=== PATIENT | male | born 1985 | race Caucasian/White ===

== ENCOUNTER 2020-06-12 09:40 | Emergency (ER) | payer SELFPAY ==
[2020-06-12] VITALS (9 sets, daily range): BP systolic 125–139; BP diastolic 88–101; PULSE 62–83; RESP 18; TEMP 37.2; O2SAT 96–100; BMI 28.7
--- NOTE | 2020-06-12 09:41 | W.ED.UPPEXIN ---
Documented by User: GRECIA Hahn 06/12/20 10:23 HPI - Extremity Injury (Upper) General: Chief Complaint: Extremity Injury, Upper Stated Complaint: LEFT HAND INJURY Time Seen by Provider: 06/12/20 09:40 Course Vital Signs: Vital signs: Vital Signs Temperature 98.9 F 06/12/20 09:50 Pulse Rate 62 06/12/20 11:06 Respiratory Rate 18 06/12/20 11:06 Blood Pressure 139/92 06/12/20 11:06 Pulse Oximetry 98 06/12/20 11:06 MDM - Extremity Injury (Upper) MDM Narrative: Medical decision making narrative: Dr. Chaves assumed care of patient upon arrival. Discharge Plan Discharge Patient Disposition: Home Clinical Impression: Foreign body finger Condition: Stable Prescriptions: New Augmentin 875-125 mg tablet 1 tab PO BID Qty: 14 RF: 0 hydrocodone-acetaminophen 5-325 mg tablet 1 tab PO Q6H PRN (Reason: pain) Qty: 14 RF: 0 Discharge Orders: Discharge ED (Routine); Ordered 06/12/20 Ordered By: Jorge Alberto Chaves Discharge Diet: Usual diet Discharge Activity: Limit activity as instructed Patient Instructions: Opioid Safety Activity Restrictions/Additional Instructions: Limit use of the left hand. Follow-up with orthopedics within 1 week dairy store manager will make arrangements for follow-up appointment. Coding Level of Care Code ED Braiding Machine Operator for Chg Fwd Documented by User: Jorge Alberto Chaves DO 06/13/20 06:25 HPI - Extremity Injury (Upper) General: Chief Complaint: Extremity Injury, Upper Stated Complaint: LEFT HAND INJURY Time Seen by Provider: 06/12/20 09:40 History of Present Illness: HPI narrative: 34-year-old male presents emergency room he was doing some work with some windshield wiper blades and somehow got the metal portion of the blade impacted into his left hand in his thumb and index finger. The length of the blades are protruding when he arrives. When he arrived. complaint: injury to: left and hand Onset (ago): minute(s) Other Extremity Injury: Left: fingers Other injuries: none Handedness: right Place: home Relieving factors: immobilization Exacerbating factors: movement of extremity Context: other (Patient was at only working some when she will wiper blades and they somehow snapped back and impaled into his hand.) Review of Systems Const: Denies: fever(s), chills, body aches, change in appetite, fatigue or malaise Card: Denies: chest pain, edema, dyspnea on exertion or orthopnea Resp: Denies: dyspnea, productive cough or non-productive cough GI: Denies: abdominal pain, nausea, vomiting, hematemesis, coffee ground emesis, diarrhea, constipation, bloating, hematochezia or melena : Denies: flank pain, dysuria, urinary frequency or urinary urgency Physical Exam Const: COMMON NORMALS: no acute distress GENERAL APPEARANCE: cooperative and comfortable ORIENTATION/CONSCIOUSNESS: Yes awake, Yes oriented to person, Yes oriented to place and Yes oriented to time HENMT: COMMON NORMALS: normocephalic, atraumatic and hearing grossly normal bilaterally HEAD & SCALP: normocephalic and atraumatic Neck/C-Spine: COMMON NORMALS: no JVD Resp: COMMON NORMALS: normal respiratory effort, No retractions, No use of accessory muscles and clear to auscultation bilaterally AUSCULTATION: clear to auscultation bilaterally Cardio: COMMON NORMALS: no JVD, regular rate, regular rhythm and No murmurs present (Cardio) RATE: regular rate RHYTHM: regular rhythm Extremity: NARRATIVE EXTREMITY EXAM: On arrival to full length when she will wipe legs protruding from the left hand. 1 is impaled into the index finger the other in the region of the second metacarpal. These were initially trimmed using a pincers to limit movement, initially on arrival there protruding out approximately 18 to 24 inches. These were trimmed to just an inch or 2 distal to the entrance point to the skin. Neuro: SENSORIUM/ORIENTATION: Yes oriented to person, Yes oriented to place and Yes oriented to time Procedures Foreign Body Removal Time Out Performed: yes Site: left and hand Description of foreign body: other (Windshield wiper blades) Sedation/Analgesia: other (Etomidate) Technique: other (X-rays examined prior to procedure. There is a small hook at the end of the blade. Using a needle-nose pliers the remaining portion that was protruding was grasped and the foreign body was rotated out in a counterclockwise fashion to prevent a hook from further impinging on soft tissue. ) Confirmed by:: direct visualization Complications: none Post-procedure exam: awake, alert, normal BP, normal HR and normal O2 sat Neurovascular: normal capillary fill, distal light touch sensation intact and distal motor function normal Procedural Sedation Indication: other (Removal of foreign bodies in the left hand.) Presedation Evaluation: See exam above. Preparation: conveyor monitor applied, pulse oximeter, capnometry used, supplemental O2 applied, suction/airway equipment at bedside and IV secured IV Etomidate dose (mg): 10 Patient Tolerated Procedure: well Complications: Respiratory Depression-Repositioning Required Interventions: airway repositioned Additional Comments: Airway briefly repositioned patient recovered well without any further problems. Course Vital Signs: Vital signs: Vital Signs Temperature 98.9 F 06/12/20 09:50 Pulse Rate 62 06/12/20 11:06 Respiratory Rate 18 06/12/20 11:06 Blood Pressure 139/92 06/12/20 11:06 Pulse Oximetry 98 06/12/20 11:06 MDM - Extremity Injury (Upper) MDM Narrative: Medical decision making narrative: Both remaining portions of the wench electrolytes were removed without difficulty or further injury patient tolerated well. His tetanus was updated he was given a gram of Ancef and discharged home on Augmentin wound left open to drainage also given hydrocodone for pain follow-up with primary care within the next week return if has problems. Discharge Plan Discharge Patient Disposition: Home Clinical Impression: Foreign body finger Condition: Stable Prescriptions: New Augmentin 875-125 mg tablet 1 tab PO BID Qty: 14 RF: 0 hydrocodone-acetaminophen 5-325 mg tablet 1 tab PO Q6H PRN (Reason: pain) Qty: 14 RF: 0 Discharge Orders: Discharge ED (Routine); Ordered 06/12/20 Ordered By: Jorge Alberto Chaves Discharge Diet: Usual diet Discharge Activity: Limit activity as instructed Patient Instructions: Opioid Safety Activity Restrictions/Additional Instructions: Limit use of the left hand. Follow-up with orthopedics within 1 week dairy store manager will make arrangements for follow-up appointment. Coding Level of Care Code ED Braiding Machine Operator for Thai Gallardo
--- NOTE | 2020-06-12 09:46 | XR_ITS ---
WS: [id number] Exam: XR hand LT min 3V* [id number] Date/Time of Exam: 06/12/2020 9:48 AM Reason For Exam: FB There are 2 metal shanks embedded in the soft tissues of the hand. One metal fragment is embedded in the lateral soft tissues of the mid index finger and the second metal shank is embedded in the palmar soft tissues along the distal end of the index finger metacarpal. No bony injury or fracture. XR/XR hand LT min 3V* [id number] IMPRESSION: 1. 2 metallic soft tissue foreign bodies identified in the region of the index finger as well as the second metacarpal as noted above. 2. No bony injury.
[2020-06-12] MEDS: ondansetron 2 mg/ML SDV 2 mL 4 MG IVP (09:58)
[2020-06-12] MEDS: morphine 4 mg/mL SDV 1 mL IVP (09:59)
[2020-06-12] MEDS: tetanus-dipt-pertussis 0.5 mL SDV IM (10:11)
--- NOTE | 2020-06-12 10:19 | PC.NURSE ---
Conscious sedation performed at bedside. RT available with BVM ready. Pt was placed on 3LNC prior to sedation. Wiper blades removed by Dr Chaves. Wounds cleansed with betadine.
--- NOTE | 2020-06-12 10:22 | PC.NURSE ---
Pt awake and talking to staff. RT removed oxygen at this time. VS stable.
[2020-06-12] MEDS: ceFAZolin 1,000 MG in sodium chloride 0.9% (plus) 50 ML 100 MG IV (10:30)
--- NOTE | 2020-06-12 11:44 | DCPLANNER ---
manager field service had message to schedule a follow up appointment for patient with ortho for having a FB removed from his hand. manager field service called the ortho clinic, spoke with Mary, gave clinic patients information. manager field service was told that patients information would be printed and reviewed. Clinic will call patient with appointment information.
--- NOTE | 2020-06-19 09:49 | DCPLANNER ---
manager care called the ortho clinic to confirm that a follow up appointment had been scheduled for patient. manager care spoke with Patricia, was told that the clinic has tried to reach patient several times and has not been able to reach patient. manager care called phone number [phone], unable to speak with anyone at this time, a voicemail was left for patient to return keycase assembler phone call.
== END 2020-06-12 11:07 | disposition home or self-care (01) ==
PROVIDERS: Emergency Provider Family Medicine
DX: S61.241A Puncture wound with foreign body of left index finger without damage to nail, initial encounter (principal); W26.8XXA Contact with other sharp object(s), not elsewhere classified, initial encounter; Z23 Encounter for immunization
CPT/HCPCS: 73130; 90471; 90715; 96365; 96375; 99284; 99291; J0690; J2270; J2405; J3490

== ENCOUNTER 2020-09-13 06:48 | Emergency (ER) | payer SELFPAY ==
[2020-09-13 07:33] VITALS: BP 141/102; PULSE 64; RESP 20; TEMP 36.4; O2SAT 99; BMI 31.5
--- NOTE | 2020-09-13 07:41 | CT_ITS ---
WS: [id number] CT kidney stone [id number] REASON FOR EXAM: L flank pain IV CONTRAST ADMINISTERED: Noncontrast TOTAL EXAM DLP: 1595.[address] scans at [facility] use at least one of these dose optimization techniques: automat ed exposure control; mA and/or kV adjustment per patient size (includes targeted exams where dose is matched to clinical indication); or iterative reconstruction. FINDINGS: ABDOMEN: Liver, spleen, pancreas, and gallbladder are unremarkable. The adrenal glands are unremarkable. 2 mm calculus in the upper right kidney. 4 mm calculus in the mi d right kidney. Multiple 2 mm calculi in the left kidney left kidney is enlarged with mild hydronephrosis secondary t o obstructing 5 mm calculus in the left ureter at the L4-L5 level. No mass, adenopathy, focal fluid collection, or free fluid identified. No bowel abnormality. Normal appendix. PELVIS: No mass, adenopathy, focal fluid collection, or free fluid. No distal ureteral calculus or bladder calculus. CT/CT kidney stone [id number] IMPRESSION: Bilateral renal calculi as above. Left obstructive uropathy as above.
--- NOTE | 2020-09-13 07:48 | ED_ITS ---
HPI - Back Pain/Injury General: Chief Complaint: Back Pain/Injury Stated Complaint: FLANK/BACK PAIN Time Seen by Provider: 09/13/20 07:32 Source: patient Mode of arrival: ambulatory Limitations: no limitations History of Present Illness: HPI Narrative: Patient is a 34-year-old male who presents to ED today with a complaint of left flank pain. Patient tells me pain began abruptly around midnight last night. He tells me he has been in a fairly significant amount of pain since that time. He has not found any alleviating or worsening factors. No injury or trauma. He is not having any difficulty with urination and has not noticed any dysuria or hematuria. He states pain radiates around into his abdomen. He has nausea without episodes of emesis. Bowel movements have been normal. No fevers. He has no history of ureter or nephrolithiasis. MD elicited complaint: back pain Onset (ago): hour(s) Timing: constant Severity: severe Similar Symptoms Previously: No Quality: sharp Location: left flank Radiation: abdomen Exacerbating factors: none Relieving factors: none Context: other (awoke from sleep) Associated symptoms: Reports abdominal pain and nausea; Deny chills, dysuria, fatigue, fever(s), hematuria, urinary urgency or vomiting Work related injury: No Review of Systems Const: Denies: fever(s), chills, body aches, fatigue or malaise Card: Denies: chest pain Resp: Denies: dyspnea GI: Reports: abdominal pain and nausea; Denies: vomiting, diarrhea or change in stool character : Reports: flank pain; Denies: difficulty urinating, dysuria, urinary frequency, urinary urgency, urina ry hesitancy, hematuria, genital pain, genital lesions, penile discharge, testicular pain or scrotal swelling Musc: Reports: back pain (L flank); Denies: neck pain, extremity pain or joint pain Skin/Breast: Denies: rash Neuro: Denies: headache(s), numbness in extremities, weakness in extremities, sensory changes or dizziness Physical Exam Const: COMMON NORMALS: average body habitus, patient oriented x3, no limitations, healthy appearing, alert and well nourished GENERAL APPEARANCE: cooperative ORIENTATION/CONSCIOUSNESS: Yes awake, Yes oriented to person, Yes oriented to place and Yes oriented to time OTHER: pacing anxiously in room HENMT: COMMON NORMALS: normocephalic and atraumatic HEAD & SCALP: normocephalic and atraumatic Resp: COMMON NORMALS: normal respiratory effort and clear to auscultation bilaterally AUSCULTATION: clear to auscultation bilaterally Cardio: COMMON NORMALS: regular rate and regular rhythm RATE: regular rate RHYTHM: regular rhythm GI: COMMON NORMALS: Normal to inspection, nondistended, normoactive bowel sounds present, Soft to palpation, non-tender, No hepatosplenomegaly present and no masses INSPECTION: Yes normal to inspection PALPATION: Yes Soft to palpation and Yes No hepatosplenomegaly present : BLADDER/KIDNEY EXAM: Yes CVA tenderness on the left Back/Pelvis: COMMON NORMALS: thoracic and lumbar spine normal to inspection, no thoracic nor lumbar tenderness and thoraco-lumbar ROM normal GENERAL BACK: Yes CVA tenderness Extremity: COMMON NORMALS: normal to inspection Neuro: COMMON NORMALS: patient oriented x3 SENSORIUM/ORIENTATION: Yes alert, Yes oriented to person, Yes oriented to place and Yes oriented to time Skin: COMMON NORMALS: no rashes or lesions noted GENERAL SKIN EXAM: no rashes or lesions noted Course Vital Signs: Vital signs: Vital Signs Temperature 97.6 F 09/13/20 07:33 Pulse Rate 64 09/13/20 07:33 Respiratory Rate 20 H 09/13/20 07:33 Blood Pressure 141/102 09/13/20 07:33 Pulse Oximetry 99 09/13/20 07:33 MDM - Back Pain/Injury MDM Narrative: Medical decision making narrative: Pain has greatly improved here. Feels like pain could be controlled at home. Will give pain/nausea meds/flomax and urine strainer and will have him follow up with Dr. Arias. Return to ED precautions given. Lab Data: Labs: Lab Results 09/13/20 09/13/20 09/13/20 Range/Units 07:52 08:15 08:15 WBC 15.1 H (4.0-10.0) 10^3/ uL RBC 4.99 (4.1-5.3) 10^6/u L Hgb 14.7 (11.7-16.6) g/dL Hct 43.9 (42.0-52.0) % MCV 88.0 (80-94) fL MCH 29.5 (28.0-34.0) pg MCHC 33.5 (30.0-36.0) g/dL RDW 13.0 (12.1-15.1) % Plt Count 281 (130-400) 10^3/c mm MPV 9.4 (7.4-10.4) fL Neut % (Auto) 85.5 % Lymph % (Auto) 8.1 % Calloway % (Auto) 5.6 % Eos % (Auto) 0.1 % Baso % (Auto) 0.2 % Neut # (Auto) 12.89 H (1.8-7.7) 10^3/u L Lymph # (Auto) 1.2 (0.8-4.8) 10^3/u L Calloway # (Auto) 0.9 (0.2-0.9) 10^3/u L Eos # (Auto) 0.0 (0.0-0.8) 10^3/u L Baso # (Auto) 0.0 (0.0-0.1) 10^3/u L Nucleated RBC % (a uto) 0 % Nucleated RBCs # 0.0 /100WBC Sodium 139 (136-145) mmol/L Potassium 4.2 (3.5-5.1) mmol/L Chloride 105 (98-107) mmol/L Carbon Dioxide 25 (22-29) mmol/L Anion Gap 13.2 (5-19) BUN 19 (6-20) mg/dL Creatinine 1.2 (0.7-1.2) mg/dL GFR Calculation 68.5 L (90-130) mL/min Glucose 115 (65-115) mg/dL Calculated Osmolal ity 291 (285-295) mOsm/k g Calcium 8.7 (8.5-10.5) mg/dL Total Bilirubin 0.2 (0.15-1.2) mg/dL AST 26 (0-40) U/L ALT 72 H (0-41) U/L Alkaline Phosphata se 64 (40-130) IU/L Total Protein 6.5 L (6.6-8.7) g/dL Albumin 4.3 (3.5-5.2) g/dL Globulin 2.2 (1.3-4.6) g/dL Urine Color Yellow (Yellow) Urine Appearance Clear (CLEAR) Urine pH 6.5 (5-7) Ur Specific Gravit y 1.015 (1.005-1.030) Urine Protein Neg (Negative) Urine Glucose (UA) Norm (Normal) Urine Ketones Negative (Negative) Urine Blood 3+ H (Negative) Urine Nitrate Negative (Negative) Urine Bilirubin Neg (Negative) Urine Urobilinogen 1 H (Negative) mg/dL Ur Leukocyte Yana ase Negative (Negative) Urine RBC 10-15 H (0-2) /hpf Urine WBC None (0-5) /hpf Ur Squamous Epith Cells 0-4 H (0-5) /hpf Amorphous Sediment Not Reportable Urine Bacteria Trace (NONE) /hpf Urine Mucus 1+ /hpf Imaging Data^: CT Abd/Pel: Radiologist's impression: [address] [address] [address] Scan Report Signed Patient: Glenn Michelle Unit #: [id number] : [id number] Age/Sex: 34 / M ADM Date: 09/13/20 Loc: ER Room/Bed: Attending Dr: Ordering Provider/Ordering MD: Tamiko Owusu Date of Service: 09/13/20 Procedure(s): CT kidney stone [id number] Accession Number(s): [id number] Report Number: [id number] WS: [id number] CT kidney stone [id number] REASON FOR EXAM: L flank pain IV CONTRAST ADMINISTERED: Noncontrast TOTAL EXAM DLP: 1595.[address] scans at [facility] use at least one of these dose optimization techniques: automated exposure control; mA and/or kV adjustment per patient size (includes targeted exams where dose is matched to clinical indication); or iterative reconstruction. FINDINGS: ABDOMEN: Liver, spleen, pancreas, and gallbladder are unremarkable. The adrenal glands are unremarkable. 2 mm calculus in the upper right kidney. 4 mm calculus in the mid right kidney. Multiple 2 mm calculi in the left kidney left kidney is enlarged with mild hydronephrosis secondary to obstructing 5 mm calculus in the left ureter at the L4-L5 level. No mass, adenopathy, focal fluid collection, or free fluid identified. No bowel abnormality. Normal appendix. PELVIS: No mass, adenopathy, focal fluid collection, or free fluid. No distal ureteral calculus or bladder calculus. CT/CT kidney stone [id number] IMPRESSION: Bilateral renal calculi as above. Left obstructive uropathy as above. Dictated By: Jakob Simmons Jr, MD Signed By: Jakob Simmons Jr, MD Signed Date/Time: 09/13/20822 DD/ 3 Discharge Plan Discharge Patient Disposition: Home Clinical Impression: Left ureteral calculus Condition: Stable Prescriptions: New hydrocodone-acetaminophen 5-325 mg tablet 1 tab PO Q4H PRN (Reason: pain) Qty: 20 RF: 0 Zofran 4 mg tablet 4 mg PO Q6H PRN (Reason: nausea and vomiting) Qty: 14 RF: 0 Flomax 0.4 mg capsule 0.4 mg PO DAILY Qty: 10 RF: 0 No Action Tylenol Extra Strength 500 mg Tablet 500 mg PO PRN RF: 0 Benadryl Allergy 25 mg Tablet 25 - 50 mg PO PRN RF: 0 Pepto-Bismol 262 mg Tablet 262 - 524 mg PO PRN RF: 0 Discharge Orders: Discharge ED (Routine); Ordered 09/13/20 Ordered By: Tamiko Owusu Referrals: Zak Arias MD [Physician] - Patient Instructions: Kidney Stones (ED), How to Strain Your Urine (ED), Flank Pain (ED) Activity Restrictions/Additional Instructions: As we discussed case management should work on your urology/Dr. Arias follow- up appointment. You need to return to the emergency department for worsening or uncontrollable pain, fevers, or any other concerns you may have. As we discussed please strain your urine and if you pass the stone bring it with you to your follow-up appointment. Coding Level of Care Code ED Trombone Slide Assembler for Chg Fwd Exam Comprehensive
[2020-09-13] MEDS: morphine 4 mg/mL SDV 1 mL IVP (08:13)
[2020-09-13] MEDS: ondansetron 2 mg/ML SDV 2 mL 4 MG IVP (08:13)
[2020-09-13] MEDS: sodium chloride 0.9% 1,000 ML 999 ML IV (08:16)
[2020-09-13 08:21] LABS: Add Urine Culture? Yes; Add Urine Microscopic? YES; Bacteria Urine TRACE /hpf; Bilirubin Urine Neg (Negative); Blood Urine 3+ (Negative); Glucose Urine UA Norm (Normal); Ketones Urine Negative (Negative); Leukocyte Esterase Urine Negative (Negative); Mucus Urine 1+ /hpf; Nitrate Urine Negative (Negative); Protein Urine Neg (Negative); Specific Gravity, Urine 1.015 (1.005-1.030); Squamous Epithelial Cell Urine 0-4 /hpf (0-5); Urine Appearance Clear (CLEAR); Urine Color Yellow (Yellow); Urobilinogen Urine 1 mg/dL (Negative); pH Urine 6.5 (5-7)
[2020-09-13 08:39] LABS: Basophils % 0.2 %; Eosinophils % 0.1 %; Hematocrit 43.9 % (42.0-52.0); Hemoglobin 14.7 g/dL (11.7-16.6); Lymphocytes # 1.2 10^3/uL (0.8-4.8); Lymphocytes % 8.1 %; Mean Corpuscular HGB Conc 33.5 g/dL (30.0-36.0); Mean Corpuscular Hemoglobin 29.5 pg (28.0-34.0); Mean Platelet Volume 9.4 fL (7.4-10.4); Monocytes # 0.9 10^3/uL (0.2-0.9); Monocytes % 5.6 %; Neutrophils # 12.89 10^3/uL (1.8-7.7); Neutrophils % 85.5 %; Nucleated Red Blood Cells % 0 %; Platelet Count 281 10^3/cmm (130-400); Red Blood Count 4.99 10^6/uL (4.1-5.3); White Blood Count 15.1 10^3/uL (4.0-10.0)
[2020-09-13 08:44] LABS: Alanine Aminotransferase 72 U/L (0-41); Albumin Level 4.3 g/dL (3.5-5.2); Alkaline Phosphatase 64 IU/L (40-130); Anion Gap 13.2 (5-19); Aspartate Amino Transferase 26 U/L (0-40); Blood Urea Nitrogen 19 mg/dL (6-20); Calcium 8.7 mg/dL (8.5-10.5); Carbon Dioxide 25 mmol/L (22-29); Chloride 105 mmol/L (98-107); Globulin 2.2 g/dL (1.3-4.6); Glomerular Filtration Rate 68.5 mL/min (90-130); Glucose 115 mg/dL (65-115); Osmolality Calculated 291 mOsm/kg (285-295); Potassium 4.2 mmol/L (3.5-5.1); Sodium 139 mmol/L (136-145); Total Bilirubin 0.2 mg/dL (0.15-1.2); Total Protein 6.5 g/dL (6.6-8.7)
[2020-09-13] MEDS: ketorolac 30 mg/mL INJ IVP (08:51)
[2020-09-13 09:23] VITALS: BP 127/82; PULSE 79; RESP 17; O2SAT 100
--- NOTE | 2020-09-17 15:13 | DCPLANNER ---
client manager large law had message to schedule a follow up appointment for patient with Dr. Arias. client manager large law called the office of Dr. Arias, spoke with [place], gave clinic patients information. client manager large law was told that patients information would be printed and reviewed. Clinic will call patient with appointment information.
--- NOTE | 2020-09-18 13:15 | DCPLANNER ---
Patient has a follow up appointment scheduled for Friday, September 18, [address] at 4:[address] Arias. Clinic will call patient with appointment information.
--- NOTE | 2020-09-20 12:00 | DCPLANNER ---
Patient had a follow up appointment scheduled with Dr. Arias - patient did not attend appointment.
== END 2020-09-13 09:24 | disposition home or self-care (01) ==
PROVIDERS: Emergency Provider Physician Assistant
DX: N13.2 Hydronephrosis with renal and ureteral calculous obstruction (principal)
CPT/HCPCS: 74176; 80053; 81001; 85025; 87086; 96361; 96374; 96375; 99284; J1885; J2270; J2405; J7030